=== PATIENT | female | born 1995 | race African-American/Black ===

== ENCOUNTER 2017-04-23 15:22 | Emergency (ER) | payer BC ==
[~2017-04-23] VITALS: Ht 160 cm; Wt 102.9 kg
[2017-04-23 15:30] VITALS: TEMP 36.6; Ht 160 cm; Wt 102.9 kg
[2017-04-23] MEDS ORDERED: ONDANSETRON INJ 2 MG/ML 2 ML VIAL IV STA (16:57)
[2017-04-23] MEDS ORDERED: SODIUM CHLORIDE 0.9% 1000ML 1,000 ML IV STA (16:57)
[2017-04-23] MEDS ORDERED: BCPILLS PO (17:09)
[2017-04-23 17:27] LABS: HEMATOCRIT 40.2 % (37-47); MEAN CELL VOLUME 85.5 fL (80-100); MEAN CORPUSCULAR HEMOGLOBIN 28.5 pg (25-34); MEAN CORPUSCULAR HGB CONC 33.3 g/dl (32-36); MEAN PLATELET VOLUME 9.8 fL (7.4-10.4); PLATELET COUNT 309 K/uL (130-400); WHITE BLOOD COUNT 17.52 K/uL (4.8-10.8)
[2017-04-23 17:35] LABS: URINE APPEARANCE CLEAR (CLEAR); URINE BILIRUBIN NEG (NEG); URINE COLOR YELLOW; URINE EPITHELIAL CELL AUTO >30 /lpf (0-5); URINE NITRITE NEG (NEG); URINE SPECIFIC GRAVITY 1.026 (1.000-1.030); UROBILINOGEN NEG (NEG); ZZUR CULT IF INDIC CLEAN CATCH NO
[2017-04-23 17:37] LABS: MANUAL MICROSCOPIC REQUIRED? NO; REVIEW REQ? NO
[2017-04-23 17:46] LABS: ALT/SGPT 30 U/L (12-78); AST/SGOT 23 U/L (15-37); BLOOD UREA NITROGEN 11 mg/dl (7-18); BUN/CREATININE RATIO 16.4 (10-20); CALCIUM 8.8 mg/dl (8.5-10.1); CARBON DIOXIDE 27 mmol/L (21-32); CHLORIDE 105 mmol/L (98-107); CREATININE 0.67 mg/dl (0.60-1.20); GLUCOSE 92 mg/dl (70-99); POTASSIUM 4.2 mmol/L (3.5-5.1); SODIUM 138 mmol/L (136-145)
[2017-04-23 17:49] LABS: ALKALINE PHOSPHATASE 71 U/L (45-117)
[2017-04-23 17:51] LABS: BASO % 0.1 %; BASO ABS # 0.01 K/uL (0-0.2); COMPLETE YES; IG% 0.3 %; LYMPH ABS # 0.87 K/uL (1.2-3.4); MONO % 3.3 %; NEUT % 91.3 %
--- NOTE | 2017-04-23 18:39 | DIAGNOSTIC IMAGING REPORT ---
ABDOMEN LIMITED (US) HISTORY: Pain. Nausea. RUQ/epigastric pain, vomiting, eval GB disease. COMPARISON: None. FINDINGS: Pancreas: Poorly seen due to overlying bowel gas. Liver: Unremarkable. Gallbladder: No gallbladder wall thickening. No gallstones. CBD: 4 mm Right kidney: No hydronephrosis. IMPRESSION: No significant abnormality identified within the within the right upper quadrant. The above report was generated using voice recognition software. It may contain grammatical, syntax or spelling errors. Electronically signed by: Juan Sims M.D. 04/23/2017 6:37 PM Dictated Date/Time: 04/23/2017 6:37 PM
--- NOTE | 2017-04-23 18:46 | EMERGENCY ROOM VISIT NOTE ---
History First contact with patient: 16:46 Chief Complaint: VOMITING Stated Complaint: VOMITING, NAUSEA Nursing Triage Summary: Vomiting. "I think I have stomach virus. I have been throwing up all day." per pt. History of Present Illness The patient is a 21 year old female who presents to the Emergency Room with complaints of vomiting and upper abdominal pain that started this morning around 8 AM. Patient states she has been throwing up all day and has not been able to keep anything down including water. She states initially that the vomit was food and fluids that she drank, now she is just vomiting up bile. She has associated nausea and upper abdominal pain that she describes as sharp, constant, worse with vomiting, currently 10/10. She has not taken any medications for her symptoms. She states that she ate at [employer] for dinner last night, she thinks she may have gotten sick from that. She states her roommate was sick 2 days ago with similar symptoms. She denies heavy alcohol use recently, denies any recreational drug use. She has not had any fevers or chills with this, she denies headaches, chest pain, shortness of breath, back pain, diarrhea, constipation, blood in the stool, urinary symptoms. Review of Systems A complete 10 point review of systems was reviewed with the patient with pertinent positives and negatives as per history of present illness. All else were negative. Past Medical/Surgical History No significant past medical history. Social History Smoking Status: Never Smoker Alcohol Use: occasionally Drug Use: none Occupation Status: [employer] student Current/Historical Medications Scheduled Control Pills ( Control Pills), 1 TAB PO DAILY Ondasetron Odt (Zofran Odt), 4 MG SL Q6H Allergies No known allergies Physical Exam Vital Signs Date Time Temp Pulse Resp B/P (MAP) Pulse Ox O2 Delivery O2 Flow Rate FiO2 04/23/17 18:49 81 18 143/77 98 Room Air 04/23/17 15:30 36.6 91 18 125/77 94 Room Air Physical Exam CONSTITUTIONAL: No acute distress, but does appear uncomfortable. Mildly dehydrated, but otherwise well appearing and well nourished. Alert and oriented X 4 with normal affect. HEENT: Normocephalic, atraumatic. Pupils equal, round and reactive to light, EOMI. TMs normal. Pharynx normal. Tacky mucous membranes. NECK: Supple, full active range of motion without discomfort. RESPIRATORY: Clear to auscultation bilaterally with no wheezing, crackles, rhonchi or stridor. Equal expansion bilaterally. CARDIOVASCULAR: Regular rate and rhythm with no murmurs, rubs or gallops. Normal peripheral perfusion. No edema. GASTROINTESTINAL: Moderate tenderness in the epigastric and right upper quadrant. No rebound tenderness or guarding. Obese abdomen. Soft and nondistended. Bowel sounds present in all quadrants. MUSCULOSKELETAL: Full range of motion of all joints without discomfort. INTEGUMENTARY: No rash or other significant dermatologic conditions noted. NEUROLOGIC: Cranial nerves II-XII grossly intact. No focal neurologic deficits noted. Medical Decision & Procedures ER Provider Diagnostic Interpretation: ABDOMEN LIMITED (US) HISTORY: Pain. Nausea. RUQ/epigastric pain, vomiting, eval GB disease. COMPARISON: None. FINDINGS: Pancreas: Poorly seen due to overlying bowel gas. Liver: Unremarkable. Gallbladder: No gallbladder wall thickening. No gallstones. CBD: 4 mm Right kidney: No hydronephrosis. IMPRESSION: No significant abnormality identified within the within the right upper quadrant. Laboratory Results 04/23/17 17:05 Red Blood Count 4.70, Mean Corpuscular Volume 85.5, Mean Corpuscular Hemoglobin 28.5, Mean Corpuscular Hemoglobin Concent 33.3, Mean Platelet Volume 9.8, Neutrophils (%) (Auto) 91.3, Lymphocytes (%) (Auto) 5.0, Monocytes (%) (Auto) 3.3, Eosinophils (%) (Auto) 0.0, Basophils (%) (Auto) 0.1, Neutrophils # (Auto) 16.01, Lymphocytes # (Auto) 0.87, Monocytes # (Auto) 0.57, Eosinophils # (Auto) 0.00, Basophils # (Auto) 0.01 04/23/17 17:05 Test 04/23/17 17:05 04/23/17 17:20 White Blood Count 17.52 K/uL (4.8-10.8) Red Blood Count 4.70 M/uL (4.2-5.4) Hemoglobin 13.4 g/dL (12.0-16.0) Hematocrit 40.2 % (37-47) Mean Corpuscular Volume 85.5 fL (80-100) Mean Corpuscular Hemoglobin 28.5 pg (25-34) Mean Corpuscular Hemoglobin Concent 33.3 g/dl (32-36) Platelet Count 309 K/uL (130-400) Mean Platelet Volume 9.8 fL (7.4-10.4) Neutrophils (%) (Auto) 91.3 % Lymphocytes (%) (Auto) 5.0 % Monocytes (%) (Auto) 3.3 % Eosinophils (%) (Auto) 0.0 % Basophils (%) (Auto) 0.1 % Neutrophils # (Auto) 16.01 K/uL (1.4-6.5) Lymphocytes # (Auto) 0.87 K/uL (1.2-3.4) Monocytes # (Auto) 0.57 K/uL (0.11-0.59) Eosinophils # (Auto) 0.00 K/uL (0-0.5) Basophils # (Auto) 0.01 K/uL (0-0.2) RDW Standard Deviation 40.3 fL (36.4-46.3) RDW Coefficient of Variation 12.9 % (11.5-14.5) Immature Granulocyte % (Auto) 0.3 % Immature Granulocyte # (Auto) 0.06 K/uL (0.00-0.02) Anion Gap 6.0 mmol/L (3-11) Est Creatinine Clear Calc Drug Dose 152.2 ml/min Estimated GFR () 145.6 Estimated GFR (Non- 125.7 BUN/Creatinine Ratio 16.4 (10-20) Calcium Level 8.8 mg/dl (8.5-10.1) Total Bilirubin 0.3 mg/dl (0.2-1) Direct Bilirubin < 0.1 mg/dl (0-0.2) Aspartate Amino Transf (AST/SGOT) 23 U/L (15-37) Alanine Aminotransferase (ALT/SGPT) 30 U/L (12-78) Alkaline Phosphatase 71 U/L (45-117) Total Protein 8.4 gm/dl (6.4-8.2) Albumin 3.8 gm/dl (3.4-5.0) Lipase 85 U/L (73-393) Urine Color YELLOW Urine Appearance CLEAR (CLEAR) Urine pH 6.0 (4.5-7.5) Urine Specific [place] 1.026 (1.000-1.030) Urine Protein 2+ (NEG) Urine Glucose (UA) NEG (NEG) Urine Ketones 2+ (NEG) Urine Occult Blood TRACE (NEG) Urine Nitrite NEG (NEG) Urine Bilirubin NEG (NEG) Urine Urobilinogen NEG (NEG) Urine Leukocyte Esterase NEG (NEG) Urine WBC (Auto) 1-5 /hpf (0-5) Urine RBC (Auto) 5-10 /hpf (0-4) Urine Hyaline Casts (Auto) 1-5 /lpf (0-5) Urine Epithelial Cells (Auto) >30 /lpf (0-5) Urine Bacteria (Auto) NEG (NEG) Urine Test NEG (NEG) Medications Administered Medications (Trade) Dose Ordered Sig/Julieta Route Start Time Stop Time Status Last Admin Dose Admin Sodium Chloride 1,000 ml @ 999 mls/hr Q1H1M STAT IV 04/23/17 16:57 04/23/17 17:57 DC 04/23/17 17:18 999 MLS/HR Ondansetron HCl (Zofran Inj) 4 mg NOW STAT IV 04/23/17 16:57 04/23/17 16:59 DC 04/23/17 17:18 4 MG Medical Decision CC: Patient presenting with complaint of nausea/vomiting and abdominal pain Interpretation of Labs: Leukocytosis with left shift, no anemia, no significant joint abnormalities, normal renal function, normal liver enzymes and lipase. UA negative, negative urine . Differential Diagnosis: Includes, but not limited to viral gastroenteritis, food poisoning, gastritis, cholecystitis, choledocholithiasis, pancreatitis, dehydration, among others. Medication Reconciliation: I attest that I have personally reviewed the patient' s current medication list. Vital signs review: I reviewed the patient's vital signs and interpret them as follows: T: Afebrile; BP: Normotensive; HR: Tachycardic; RR: WNL; Pulse Ox: WNL on RA. Summary: Patient was evaluated at bedside, history of physical exam performed. Patient's alert and in no acute distress, but does appear uncomfortable and has been actively vomiting. Patient has epigastric and right upper quadrant tenderness on exam. She also appears dehydrated. Orders were placed at bedside for labs, UA and urine , IV fluids for hydration, IV Zofran for nausea, right upper quadrant ultrasound to evaluate for gallbladder disease. Patient discussed with Dr. Garcia, who agrees with my assessment and plan. Labs reviewed as above, notable for leukocytosis, otherwise unremarkable. Ultrasound reviewed, negative for any acute findings. Patient reassessed multiple times throughout ED stay, she felt much better after IV fluids and zofran, she is now tolerating PO fluids well without difficulty. Her pain is also mostly resolved. I updated patient on all results and plan for discharge home. I suspect her symptoms are most likely a viral gastroenteritis, given her roommate's recent illness with the same symptoms. I encouraged her to follow up with her PCP/S, and discussed return precautions with her, she verbalized understanding, and was happy with this plan. Patient was discharged home in stable condition and ambulatory. Medication Reconcilliation Current Medication List: was personally reviewed by me Impression Primary Impression: Gastroenteritis Departure Information Dispostion Home / Self-Care Condition GOOD Prescriptions Ondasetron Odt (ZOFRAN ODT) 4 Mg Tab 4 MG SL Q6H for Nausea, #6 TAB Prov: Wen Cowan CRNP 04/23/17 Referrals No Doctor, Assigned (PCP) [facility] Patient Instructions ED Gastroenteritis Vs Food Poison, My [facility] Additional Instructions You have been treated in the Emergency Department your Abdominal Pain. Laboratory results and imaging studies have ruled out any emergent causes for your abdominal pain which would warrant admission or surgery. You have been prescribed Zofran to be used for any nausea or vomiting. Take as prescribed. For pain control, you can use the following [id number] medicines (if >12 yo): - Regular strength (325mg/tab) Tylenol (acetaminophen) 2 tabs every 4-6 hours as needed. Do not exceed 10 tablets in a 24 hour period. Avoid taking more than 3000 mg of Tylenol per day. This includes any other sources of acetaminophen you may take on a regular basis. - Regular strength (200 mg/tab) Advil (ibuprofen) 1-2 tabs every 4-6 hours as needed. Do not exceed a dose of 3200 mg per day. Drink plenty of water and stay well hydrated. You should follow-up with your Primary Care Provider or [facility] in the next few days. Return to the emergency department if your symptoms worsen, including severe worsening abdominal pain, high fevers/chills, worsening nausea/vomiting, vomiting blood, blood in your stool or urine, or any other concerns. Work Instructions Return To Work: 2 days School Instructions Return To School: 2 days
[2017-04-23 18:49] VITALS: BP 143/77; PULSE 81; O2SAT 98
[2017-04-23] MEDS ORDERED: ONDA4TAB10 SL (19:17)
== END 2017-04-23 19:13 | disposition home or self-care (01) ==
LOC: C.EDB 15:27
DX: K52.9 Noninfective gastroenteritis and colitis, unspecified (principal)